=== PATIENT | female | born 1985 | race Caucasian/White ===

== ENCOUNTER → 2017-07-05 | Outpatient (CLI) | payer OTHER | LOC: HPND 09:10 | PROVIDERS: ATTEND Obstetrics & Gynecology | DX: O24.410 Gestational diabetes mellitus in pregnancy, diet controlled (principal); O34.212 Maternal care for vertical scar from previous cesarean delivery; O34.42 Maternal care for other abnormalities of cervix, second trimester | CPT/HCPCS: 76816 ==

== ENCOUNTER → 2017-08-02 | Outpatient (CLI) | payer OTHER ==
[~2017-08-02] MED LIST: GLUC1TES75; PREN1CAP7 PO
== END ==
LOC: HPND 08:58
PROVIDERS: ATTEND Obstetrics & Gynecology
DX: O24.410 Gestational diabetes mellitus in pregnancy, diet controlled (principal); O34.43 Maternal care for other abnormalities of cervix, third trimester; O34.219 Maternal care for unspecified type scar from previous cesarean delivery
CPT/HCPCS: 76816

== ENCOUNTER → 2017-08-30 | Outpatient (CLI) | payer OTHER ==
[~2017-08-30] MED LIST changes: +LANCETS1 MI1
== END ==
LOC: HPND 09:20
PROVIDERS: ATTEND Obstetrics & Gynecology
DX: O34.212 Maternal care for vertical scar from previous cesarean delivery (principal); O24.410 Gestational diabetes mellitus in pregnancy, diet controlled
CPT/HCPCS: 76816

== ENCOUNTER 2017-10-05 08:44 | Inpatient (IN) | payer OTHER ==
[~2017-10-05] VITALS: Ht 162.6 cm; Wt 80.0 kg
[2017-10-05] VITALS (8 sets, daily range): BP systolic 119–135; BP diastolic 66–92; PULSE 7–117; RESP 18–22; TEMP 97.7–99.2; O2SAT 98–99
--- NOTE | 2017-10-05 08:23 | HHI.HP ---
History & Physical H&P Unit Number: [id number] Date of : 1985 Patient Status: Registered Clinic Attending Doctor: Shane Tavares MD HPI HPI Chief Complaint 39 wks Travel History International Travel<30 Days: No Contact w/Intl Traveler<30Days: No Known Affected Area: No History of Present Illness HPI Pt is a 32 yo . EDC 10-11-2017, based on first trimester ultrasound. LMP was 12-28-2016. is complicated by gestational diabetes, well controlled on diet. She is GBS positive. Pt had primary low transverse C section [id number] at [facility]. Indication was arrest of descent, suspected cephalo-pelvic disproportion. She was gestational diabetic and also had 'suspected developing chorio- amnionitis'. Pt states that she pushed for 2 hours without descent. Infant weighed 8lbs , with APGARs of 3 and 9. infant stayed in NICU for 5 days. Pt states that she was told she would have a subsequent 'difficult vaginal delivery ' . We discussed success rates of in selected patients of over 70%. We discussed pros and cons of versus repeat elective LTCS. pt now decides to plan for repeat LTCS. We discussed procedure and likely outcomes. Repeat LTCS is scheduled for 10-05-2017. Weeks Gestation: 39 Para: 1 : 3 History (Limited) History Past Medical History Medical History: Denies Significant Hx Obstetric History Obstetric History Previous C Section 2012 for suspected CPD/chorio-amnionitis. , complicated by gestational diabetes, gestational hypertension. Prior first trimester miscarriage. Previous LEEP, 2014, subsequent PAPs wnl. Past Surgical History Narrative Surgical previous C section Surgical History: No Previous Surgery Family History Family History: Negative Social History Alcohol Use: No Tobacco Use: No Substance Abuse: No Allergies-Medications Allergies-Medications (Allergen,Severity, Reaction): Coded Allergies: No Known Allergies (Unverified Adverse Reaction, Unknown, 09/14/17) Home Meds Active Scripts Lancets (Lancets) 1 Mis Mis, EA .ROUTE DIRECTED for Blood Sugar Management, # 1 2 Refills Prov:Neyda Stewart CNM 09/07/17 W/O Vit A W/ Fe Fumar (Citranatal Aylett) 27-1-260 Mg Cap, 1 CAP PO DAILY for Nutritional Supplement, #30 CAP 2 Refills Prov:Neyda Stewart CNM [facility] 07/27/17 True Metrix Glucose Test Strips (True Metrix Glucose Test Strips) 1 Silvana Silvana, 1 EA .ROUTE DIRECTED for Blood Sugar Management, #1 BOX 1 Refill Prov:Neyda Stewart CNM [facility] 07/27/17 Discontinued Scripts Amoxicillin (Amoxicillin) 500 Mg Tab, 500 MG PO TID for Infection for 10 Days, # 30 TAB 0 Refills Prov:Neyda Stewart CNM [facility] 09/09/17 ROS Review of Systems Except as stated in HPI: all other systems reviewed are Neg Physical Exam Physical Exam Narrative GENERAL: Well-nourished, well-developed patient. SKIN: Warm and dry. HEAD: Normocephalic and atraumatic. EYES: No scleral icterus. No injection or drainage. ENT: No nasal drainage noted. Mucous membranes pink. Airway patent. NECK: Supple, trachea midline. No JVD. CARDIOVASCULAR: Regular rate and rhythm without murmurs, gallops, or rubs. RESPIRATORY: Breath sounds equal bilaterally. No accessory muscle use. BREASTS: Bilateral exam showed no masses , no retractions, no nipple discharge. ABDOMEN/GI: Abdomen soft, non-tender, bowel sounds present, no rebound, no guarding Gravid to [-] weeks size Fundal Height: [-] GENITOURINARY: External Genitalia: intact and normal in appearance BUS glands: [-] Cervix: [-post] Dilatation: [0-] Effacement: [0-] Station: [-3] Presentation: [vtx-] Membranes: [intact ] Uterine Contractions: [0-] FHT's: Category: [-1] Baseline: [133-] Reactive: [R-] Variability: [mod-] Decels: [none-] EXTREMITIES: No cyanosis or edema. BACK: Nontender without obvious deformity. No CVA tenderness. NEUROLOGICAL: Awake and alert. Motor and sensory grossly within normal limits. Five out of 5 muscle strength in all muscle groups. Normal speech. Data Data Data Vital Signs Reviewed: Yes Group B Strep: Positive MDM MDM Medical Record Reviewed: Yes Plan 32yo here for RCS This complicated by positive GBS and gestational diabetes. Previous C section report reviewed. patient opts for REPEAT LTCS. 10-05-2017. procedure reviewed and pre-operative instructions given Disposition: ADMIT for RCS Condition: Good Oct.05 Javy Edge II, MD Oct 05, 2017 08:23
[2017-10-05] MEDS ORDERED: LACTATED RINGER'S 1000 ML INJ 1,000 ML IV ONE ×2 (09:04→12:00)
[2017-10-05] MEDS ORDERED: LACTATED RINGER'S 1000 ML INJ 1,000 ML IV SCH ×2 (09:34→19:42)
[2017-10-05 10:08] LABS: AUTOMATED NEUTROPHIL # 5.3 TH/MM3 (1.8-7.7); BASOPHIL % 0.4 % (0.0-2.0); EOSINOPHIL # 0.1 TH/MM3 (0-0.4); EOSINOPHIL % 1.5 % (0.0-4.0); HEMATOCRIT 36.2 % (35.0-46.0); HEMOGLOBIN 12.7 GM/DL (11.6-15.3); LYMPH % 26.1 % (9.0-44.0); LYMPHOCYTE # 2.1 TH/MM3 (1.0-4.8); MEAN CELL VOLUME 87.6 FL (80.0-100.0); MEAN CORPUSCULAR HEMOGLOBIN 30.7 PG (27.0-34.0); MEAN CORPUSCULAR HGB CONC 35.1 % (32.0-36.0); MEAN PLATELET VOLUME 9.1 FL (7.0-11.0); MONO % 6.8 % (0.0-8.0); MONOCYTE # 0.6 TH/MM3 (0-0.9); NEUT % 65.2 % (16.0-70.0); PLATELET COUNT 175 TH/MM3 (150-450); RED BLOOD COUNT 4.14 MIL/MM3 (4.00-5.30); RED CELL DISTRIBUTION WIDTH 14.9 % (11.6-17.2); WHITE BLOOD COUNT 8.2 TH/MM3 (4.0-11.0)
[2017-10-05 10:15] LABS: BACTERIA, URINE OCC /hpf; BILIRUBIN, URINE NEG (NEG); BLOOD, URINE NEG (NEG); GLUCOSE,URINE NEG (NEG); KETONE, URINE 10 mg/dL (NEG); MUCUS URINE FEW /lpf (OCC); NITRITE,URINE NEG (NEG); SQUAMOUS EPITHELIAL CELL URINE 37 /hpf (0-5); TRANSITIONAL EPI CELLS, URINE <1 /hpf; URINE COLOR YELLOW (YELLW/STRAW); URINE LEUKOCYTE ESTERASE TRACE (NEG)
[2017-10-05] MEDS ORDERED: ceFAZolin 2 GM PREMIX 50 ML IV SCH (10:15)
[2017-10-05] MEDS ORDERED: ACETAMINOPHEN 1000 MG/100 ML 100 ML IV ONE (10:24)
[2017-10-05] MEDS ORDERED: MORPHINE SULFATE PF 5 MG/10 ML VIAL ONE (10:24)
[2017-10-05] MEDS ORDERED: CITRIC ACID-SODIUM CITRATE LIQ 30 ML UDC PO SCH (10:45)
[2017-10-05] MEDS ORDERED: KETOROLAC TROMETHAMINE 30 MG/ML (IVP) VIAL IV PUSH ONE (12:00)
[2017-10-05] MEDS ORDERED: ONDANSETRON HCL 4 MG/2 ML VIAL IV ONE (12:00)
[2017-10-05] MEDS ORDERED: DEXAMETHASONE SOD PHOS 4 MG/ML VIAL IV ONE (12:00)
[2017-10-05] MEDS ORDERED: PHENYLEPH/NS 1000 MCG/10 ML SYR IV ONE (12:00)
[2017-10-05] MEDS ORDERED: ESMOLOL HCL 100 MG/10 ML VIAL IV ONE (12:00)
[2017-10-05] MEDS ORDERED: OXYTOCIN 10 UNIT/ML AMP IV ONE (12:00)
[2017-10-05] MEDS ORDERED: EPIDURAL-NO SYSTEMIC NARCOTICS PRN (13:35)
[2017-10-05] MEDS ORDERED: EPIDURAL-DIPHENHYDRAMINE HCL 50 MG CAP PO PRN (13:35)
[2017-10-05] MEDS ORDERED: EPIDURAL-DO NOT ADMINISTER ANTICOAGULANTS PRN (13:35)
[2017-10-05] MEDS ORDERED: EPIDURAL-DIPHENHYDRAMINE HCL 50 MG/ML VIAL IV PUSH PRN (13:35)
[2017-10-05] MEDS ORDERED: EPIDURAL-NALOXONE HCL 0.4 MG/ML AMP IV PUSH PRN (13:35)
[2017-10-05] MEDS ORDERED: ONDANSETRON HCL 4 MG/2 ML VIAL IV PUSH PRN (14:45)
[2017-10-05] MEDS ORDERED: SODIUM CHLORIDE 0.9% FLUSH 10 ML FLUSH IV FLUSH PRN (14:45)
[2017-10-05] MEDS ORDERED: OXYTOCIN 30 UNITS-500ML PREMIX 500 ML IV ONE (14:45)
[2017-10-05] MEDS ORDERED: ACETAMINOPHEN 325 MG TAB PO PRN (14:45)
[2017-10-05] MEDS ORDERED: ZOLPIDEM TARTRATE 5 MG TAB PO PRN (14:45)
[2017-10-05] MEDS ORDERED: SIMETHICONE 80 MG CHEWABLE TAB PO PRN (14:45)
--- NOTE | 2017-10-05 14:57 | PD.OP ---
Operative Report Date of Surgery: Oct 05, 2017 Preoperative Diagnosis: (1) 39 weeks gestation of (2) Previous section Postoperative Diagnosis: (1) 39 weeks gestation of (2) Previous section Procedure: Repeat Low Transverse Section Anesthesia: Spinal Surgeon: Ashleigh Milligan Primary Education Professor(s): Christa Connors Resident Surgeon: Gricel Brooke Operation and Findings: PREOPERATIVE DIAGNOSIS 1. 39 weeks gestation 2. Repeat Section. POSTOPERATIVE DIAGNOSIS 1. 39 weeks gestation. 2. Repeat Section. PROCEDURE Primary low transverse section. SURGEON Dr. Ashleigh Milligan and Dr. Gricel Brooke R3. FINDINGS A normal viable female infant weight 3370g and Apgars 8/9. Right fallopian tube adhesed to anterior uterus. COMPLICATIONS None COUNTS Correct ESTIMATED BLOOD LOSS 500 cc FLUIDS Crystalloids CONDITION The patient tolerated the procedure well and went to the PACU for recovery in good condition. PROCEDURE IN DETAIL The patient was taken to the operating room, identified by name band and verbally. The time out was done and patient was prepped and draped in the usual sterile fashion for section. A Pfannenstiel incision was made then carried down to the fascia. The fascia was taken off the rectus muscle by blunt and sharp dissection. The rectus muscles were spread bluntly and the peritoneum entered under direct vision without difficulty. The incision was extended and adhesions were taken down. The right fallopian tube was noted to be adhered to the anterior uterus and was dissected off of the uterus. The uterus was incised transversely along the lower uterine segment. Once the uterine cavity was entered, clear fluid was noted. The head was grasped and fundal pressure was applied. A kiwi vacuum was used to assist with delivery of the head. Nuchal cord x 1 was reduced and the rest of the body was delivered without difficulty. Cord clamping was delayed for 45 seconds before the cord was doubly clamped and cut and the baby was handed to the baby nurse. The cord blood was obtained and the placenta was delivered manually. The uterus was curettaged with a wet lap. The uterine incision was repaired with #1 chromic in a running locking fashion in two layers with the second layer imbricating the first to achieve hemostasis. The uterus was returned to the abdominal cavity and Dia was applied to assist with hemostasis of the right fimbria. Intercede was placed to prevent future adhesion of the right fallopian tube. Once this had been accomplished, all incisions were carefully inspected. The gutters were cleaned of blood and debris. The fascia was repaired with #1 PDS in a running fashion bilaterally. The subcuticular layer was repaired with plain gut. The skin was then repaired with a 3-0 Monocryl in a subcuticular fashion. The wound was steriley dressed with a Primapore dressing. The patient tolerated the procedure well and went to PACU for recovery in good condition. Gricel Brooke MD, R3 Oct 05, 2017 14:57
[2017-10-05] MEDS: IBUPROFEN 600 MG TAB PO PRN (23:42)
[2017-10-05] MEDS: oxyCODONE/ACETAMINOPHEN 5 MG/325 MG TAB PO PRN (23:42)
[2017-10-06] MEDS ORDERED: OXYTOCIN 30 UNITS-500ML PREMIX 500 ML IV PRN (00:45)
[2017-10-06 01:00] VITALS: BP 124/76; PULSE 91; RESP 16; TEMP 98.9
[2017-10-06 04:30] VITALS: BP 212/87; PULSE 101; RESP 18; TEMP 98.4
[2017-10-06] MEDS: oxyCODONE/ACETAMINOPHEN 5 MG/325 MG TAB PO PRN ×5 (05:03→22:07)
[2017-10-06] MEDS: IBUPROFEN 600 MG TAB PO PRN ×3 (05:03→18:00)
[2017-10-06 06:11] LABS: AUTOMATED NEUTROPHIL # 8.7 TH/MM3 (1.8-7.7); BASOPHIL % 0.3 % (0.0-2.0); EOSINOPHIL # 0.1 TH/MM3 (0-0.4); EOSINOPHIL % 0.5 % (0.0-4.0); HEMATOCRIT 36.3 % (35.0-46.0); HEMOGLOBIN 12.5 GM/DL (11.6-15.3); LYMPH % 20.6 % (9.0-44.0); LYMPHOCYTE # 2.5 TH/MM3 (1.0-4.8); MEAN CELL VOLUME 87.8 FL (80.0-100.0); MEAN CORPUSCULAR HEMOGLOBIN 30.3 PG (27.0-34.0); MEAN CORPUSCULAR HGB CONC 34.5 % (32.0-36.0); MEAN PLATELET VOLUME 9.2 FL (7.0-11.0); MONO % 6.8 % (0.0-8.0); MONOCYTE # 0.8 TH/MM3 (0-0.9); NEUT % 71.8 % (16.0-70.0); PLATELET COUNT 192 TH/MM3 (150-450); RED BLOOD COUNT 4.13 MIL/MM3 (4.00-5.30); RED CELL DISTRIBUTION WIDTH 14.8 % (11.6-17.2); WHITE BLOOD COUNT 12.1 TH/MM3 (4.0-11.0)
[2017-10-06 08:00] VITALS: BP 113/79; PULSE 78; RESP 16; TEMP 98.2
--- NOTE | 2017-10-06 09:04 | HHI.OB ---
Subjective Post Operative Day: 1 Remarks Ms. Hartmann is a 32 yo [id number] who is POD 1 from repeat CS 10/05. Afebrile with stable vital signs overnight. *Regarding documented SBP 212, confirmed with nursing staff that this is an EMR entry order; patient has been normotensive * Patient has been afebrile with stable vital signs overnight. Patient reports that she is doing well at this time; she reports some abdominal pain but that it is controlled with Motrin and Percocet. Patient has had light vaginal bleeding. Patient has been ambulating well. No dysuria. Patient passing gas. No chest pain, shortness of breath, or leg swelling. Patient breast feeding; she reports this is going well. Objective Vitals/I&O Vital Signs Date Time Temp Pulse Resp B/P (MAP) Pulse Ox O2 Delivery O2 Flow Rate FiO2 10/06/17 04:30 212/87 (128) 10/06/17 04:30 98.4 101 18 10/06/17 01:00 98.9 91 16 124/76 (92) 10/05/17 21:15 99.2 10/05/17 21:15 100 20 120/71 (87) 10/05/17 17:18 78 10/05/17 17:18 7 18 135/92 (106) 10/05/17 15:45 74 20 133/72 (92) 99 10/05/17 15:30 75 20 124/67 (86) 98 10/05/17 15:15 79 22 99 10/05/17 15:15 126/77 (93) 10/05/17 15:00 97.7 88 20 119/66 (83) 99 10/05/17 10:00 97.9 20 10/05/17 09:30 117 122/89 (100) Result Diagram: 10/06/17 0520 Objective Remarks GENERAL: Well-nourished, well-developed patient. CARDIOVASCULAR: Regular rate and rhythm without murmurs. Normal perfusion RESPIRATORY: CTAB; normal rate ABDOMEN/GI: Abdomen soft, non-tender, bowel sounds present. Incision: Clean, dry and intact. Fundus: Firm, non-tender at umbilicus. GENITOURINARY: Light to moderate bleeding. EXTREMITIES: No cyanosis or edema, non-tender, without signs of DVT. Medications and IVs Current Medications Medications (Trade) Dose Ordered Sig/Jamir Route Start Time Stop Time Status Last Admin Lactated Ringer's 1,000 ml @ 100 mls/hr Q10H IV 10/05/17 19:42 10/06/17 15:41 10/05/17 23:45 Oxytocin 500 ml @ 100 mls/hr UNSCH X1 PRN IV 10/06/17 00:45 10/07/17 00:44 (NS Flush) 2 ml BID IV FLUSH 10/05/17 21:00 (NS Flush) 2 ml UNSCH PRN IV FLUSH 10/05/17 14:45 (Mylicon Chew) 80 mg QID PRN PO 10/05/17 14:45 (Tylenol) 650 mg Q6H PRN PO 10/05/17 14:45 (Motrin) 600 mg Q6H PRN PO 10/05/17 14:45 10/06/17 05:03 (Percocet 5-325 Mg) 1 tab Q4H PRN PO 10/05/17 14:45 10/06/17 05:03 (Percocet 5-325 Mg) 2 tab Q4H PRN PO 10/05/17 14:45 (Asha-Colace) 2 tab Q12H PRN PO 10/05/17 14:45 (Ambien) 5 mg HS PRN PO 10/05/17 14:45 (M-M-R Ii Inj) 0.5 ml ONCE ONCE SQ 10/06/17 16:00 10/06/17 16:01 (Boostrix Inj) 0.5 ml ONCE ONCE IM 10/06/17 16:00 10/06/17 16:01 (Zofran Inj) 4 mg Q6H PRN IV PUSH 10/05/17 14:45 Miscellaneous Information NO SYSTEMIC NARCOTICS TO BE GIVEN FO... UNSCH PRN .XX 10/05/17 13:35 10/06/17 13:34 (Narcan Inj) 0.4 mg UNSCH PRN IV PUSH 10/05/17 13:35 10/06/17 13:34 (Benadryl Inj) 25 mg Q6H PRN IV PUSH 10/05/17 13:35 10/06/17 13:34 (Benadryl) 50 mg Q6H PRN PO 10/05/17 13:35 10/06/17 13:34 Miscellaneous Information ALL NURSING DEPARTMENTS UNSCH PRN .XX 10/05/17 13:35 10/06/17 13:34 Assessment/Plan Problem List: (1) care following delivery ICD Codes: Z39.2 - Encounter for routine follow-up Status: Acute Assessment and Plan Ms. Hartmann is a 32 yo [id number] who is POD 1 from repeat CS 10/05. -Continue post- care -Continue to monitor VS, vaginal bleeding -Encourage ambulation -Percocet/Motrin for pain control -Asha-colace for stool softening Paul Mclain MD, R3 Oct 06, 2017 09:04
[2017-10-06] MEDS: DOCUSATE SODIUM 50 MG/SENNA 8.6 MG TAB PO PRN ×2 (09:17→22:08)
[2017-10-06 12:00] VITALS: BP 116/78; PULSE 89; RESP 16; TEMP 97.9
[2017-10-06] MEDS ORDERED: DIPHTH/TETANUS/ACEL PERTUSSIS (BOOSTER) 0.5 ML VIAL/PFS IM ONE (16:00)
[2017-10-06] MEDS ORDERED: MEASLES, MUMPS, RUBELLA VACCINE 0.5 ML VIAL SQ ONE (16:00)
[2017-10-06] MEDS: SODIUM CHLORIDE 0.9% FLUSH 10 ML FLUSH IV FLUSH SCH (19:23)
[2017-10-06 20:00] VITALS: BP 117/83; PULSE 95; RESP 18; TEMP 97.8; O2SAT 98
[2017-10-06 23:50] VITALS: BP 149/93; PULSE 96; RESP 20; TEMP 98.3; O2SAT 96
[2017-10-07] MEDS: oxyCODONE/ACETAMINOPHEN 5 MG/325 MG TAB PO PRN ×6 (01:43→22:28)
[2017-10-07] MEDS: IBUPROFEN 600 MG TAB PO PRN ×4 (01:43→22:25)
[2017-10-07 04:00] VITALS: BP 151/90; PULSE 84; RESP 18; TEMP 98.2; O2SAT 96
--- NOTE | 2017-10-07 07:45 | HHI.OB ---
Subjective Post Operative Day: 2 Remarks Ms. Hartmann is a 32 yo [id number] who is POD 2 from repeat CS 10/05. Afebrile with HTN overnight (BP's of 149/93, 151/90). Patient attributes her BP elevation to ambulating/activity. Patient reports that she is doing well at this time; she reports some abdominal pain but that it is controlled. Patient has had light vaginal bleeding. Patient has been ambulating well. No dysuria. Patient passing gas; she has not yet had a bowel movement. No chest pain, shortness of breath, or leg swelling. Patient does not report any problems with . Objective Vitals/I&O Vital Signs Date Time Temp Pulse Resp B/P (MAP) Pulse Ox O2 Delivery O2 Flow Rate FiO2 10/07/17 04:00 98.2 84 18 151/90 (110) 96 10/06/17 23:50 98.3 96 20 149/93 (111) 96 10/06/17 20:00 117/83 (94) 10/06/17 20:00 97.8 95 18 98 10/06/17 12:00 97.9 89 16 116/78 (91) 10/06/17 08:00 98.2 78 16 113/79 (90) Result Diagram: 10/06/17 0520 Objective Remarks GENERAL: Well-nourished, well-developed patient. CARDIOVASCULAR: Regular rate and rhythm without murmurs. Normal perfusion RESPIRATORY: CTAB; normal rate ABDOMEN/GI: Abdomen soft, non-tender, bowel sounds present. Incision: Clean, dry and intact. Fundus: Firm, non-tender at umbilicus. GENITOURINARY: Light to moderate bleeding. EXTREMITIES: No cyanosis or edema, non-tender, without signs of DVT. Medications and IVs Current Medications Medications (Trade) Dose Ordered Sig/Jamir Route Start Time Stop Time Status Last Admin (NS Flush) 2 ml BID IV FLUSH 10/05/17 21:00 (NS Flush) 2 ml UNSCH PRN IV FLUSH 10/05/17 14:45 (Mylicon Chew) 80 mg QID PRN PO 10/05/17 14:45 (Tylenol) 650 mg Q6H PRN PO 10/05/17 14:45 (Motrin) 600 mg Q6H PRN PO 10/05/17 14:45 10/07/17 01:43 (Percocet 5-325 Mg) 1 tab Q4H PRN PO 10/05/17 14:45 10/06/17 05:03 (Percocet 5-325 Mg) 2 tab Q4H PRN PO 10/05/17 14:45 10/07/17 06:06 (Asha-Colace) 2 tab Q12H PRN PO 10/05/17 14:45 10/06/17 22:08 (Ambien) 5 mg HS PRN PO 10/05/17 14:45 (Zofran Inj) 4 mg Q6H PRN IV PUSH 10/05/17 14:45 Assessment/Plan Problem List: (1) care following delivery ICD Codes: Z39.2 - Encounter for routine follow-up Status: Acute Assessment and Plan Ms. Hartmann is a 32 yo [id number] who is POD 1 from repeat CS 10/05. -Continue post- care -Continue to monitor VS, vaginal bleeding -Encourage ambulation -Percocet/Motrin for pain control -Asha-colace for stool softening BP elevation Impression: multiple SBP's ~150/90. History of gestational HTN with prior per EMR -Will continue to monitor BP overnight Paul Mclain MD, R3 Oct 07, 2017 07:45
[2017-10-07 08:00] VITALS: BP 131/80; PULSE 88; RESP 18; TEMP 97.9
[2017-10-07] MEDS: SODIUM CHLORIDE 0.9% FLUSH 10 ML FLUSH IV FLUSH SCH (09:00)
[2017-10-07 14:00] VITALS: BP 121/88; PULSE 102; RESP 16; TEMP 98.2
[2017-10-07 17:00] VITALS: BP 134/86; PULSE 86; RESP 16; TEMP 97.9
[2017-10-07 20:00] VITALS: BP 118/79; PULSE 96; RESP 18; TEMP 98.2
[2017-10-08] VITALS: BP 119/81; PULSE 89; RESP 18; TEMP 98
[2017-10-08] MEDS: oxyCODONE/ACETAMINOPHEN 5 MG/325 MG TAB PO PRN ×3 (02:38→10:40)
[2017-10-08 04:00] VITALS: BP 132/86; PULSE 103; RESP 20; TEMP 98.6
[2017-10-08] MEDS: IBUPROFEN 600 MG TAB PO PRN (06:29)
[2017-10-08 08:00] VITALS: BP 116/75; PULSE 87; RESP 16; TEMP 97.6; O2SAT 97
--- NOTE | 2017-10-08 09:57 | HHI.OB ---
Subjective Post Operative Day: 3 Remarks Ms. Hartmann is a 32 yo [id number] who is POD 3 from repeat CS 10/05. Afebrile with stable vital signs overnight. Patient reports that she is doing well at this time; no significant abdominal pain. Mild vaginal bleeding. Patient ambulating well. No dysuria. Patient passing gas; she has not yet had a bowel movement. No chest pain, shortness of breath, or leg swelling. Patient has been well. Patient plans to have follow-up appointment with [facility] in 1 week. Objective Vitals/I&O Vital Signs Date Time Temp Pulse Resp B/P (MAP) Pulse Ox O2 Delivery O2 Flow Rate FiO2 10/08/17 08:00 116/75 (89) 10/08/17 08:00 87 16 97 10/08/17 08:00 97.6 10/08/17 04:00 98.6 103 20 132/86 (101) 10/08/17 00:00 98.0 89 18 119/81 (94) 10/07/17 20:00 96 118/79 (92) 10/07/17 20:00 98.2 18 10/07/17 17:00 97.9 86 16 134/86 (102) 10/07/17 14:00 98.2 102 16 121/88 (99) Result Diagram: 10/06/17 0520 Objective Remarks GENERAL: Well-nourished, well-developed patient. CARDIOVASCULAR: Regular rate and rhythm without murmurs. Normal perfusion RESPIRATORY: CTAB; normal rate ABDOMEN/GI: Abdomen soft, non-tender, bowel sounds present. Incision: Clean, dry and intact. Fundus: Firm, non-tender at umbilicus. GENITOURINARY: Light to moderate bleeding. EXTREMITIES: No cyanosis or edema, non-tender, without signs of DVT. Medications and IVs Current Medications Medications (Trade) Dose Ordered Sig/Jamir Route Start Time Stop Time Status Last Admin (NS Flush) 2 ml BID IV FLUSH 10/05/17 21:00 (NS Flush) 2 ml UNSCH PRN IV FLUSH 10/05/17 14:45 (Mylicon Chew) 80 mg QID PRN PO 10/05/17 14:45 (Tylenol) 650 mg Q6H PRN PO 10/05/17 14:45 (Motrin) 600 mg Q6H PRN PO 10/05/17 14:45 10/08/17 06:29 (Percocet 5-325 Mg) 1 tab Q4H PRN PO 10/05/17 14:45 10/06/17 05:03 (Percocet 5-325 Mg) 2 tab Q4H PRN PO 10/05/17 14:45 10/08/17 06:29 (Asha-Colace) 2 tab Q12H PRN PO 10/05/17 14:45 10/06/17 22:08 (Ambien) 5 mg HS PRN PO 10/05/17 14:45 (Zofran Inj) 4 mg Q6H PRN IV PUSH 10/05/17 14:45 Assessment/Plan Problem List: (1) care following delivery ICD Codes: Z39.2 - Encounter for routine follow-up Status: Acute Assessment and Plan Ms. Hartmann is a 32 yo [id number] who is POD 3 from repeat CS 10/05. -Continue post- care -Hgb 12.7-> 12.5 post-operatively -Normal VS -Mild vaginal bleeding -Ambulating well -Continue Percocet/Motrin for pain control -Continue Asha-colace for stool softening -Follow-up appointment in 1 week for incision check Paul Mclain MD, R3 Oct 08, 2017 09:57
[2017-10-08] MEDS ORDERED: IBUP-232 PO (09:59)
[2017-10-08] MEDS ORDERED: OXYC1TAB63 PO (09:59)
[2017-10-08] MEDS ORDERED: PERI PO (09:59)
--- NOTE | 2017-10-08 09:59 | HHI.DCPOC ---
Discharge Care Plan Diagnosis: (1) care following delivery Report Symptoms to Your Doctor -Temperature above 100.5 degrees -Redness, of incision or excessive or foul smelling drainage -Unusual pain or calf pain -Increased vaginal bleeding -Painful or difficulty urinating -Feelings of extreme sadness or anxiety after 2 weeks Goals to Promote Your Health * To prevent worsening of your condition and complications * To maintain your health at the optimal level Directions to Meet Your Goals Take your medications as prescribed Follow your dietary instruction Follow activity as directed Ensure plenty of rest for recovery Drink fluids for hydration Keep your appointments as scheduled Take your immunizations and boosters as scheduled If your symptoms worsen call your PCP, if no PCP go to Urgent Care Center or Emergency Room Smoking is Dangerous to Your Health. Avoid second hand smoke Call the 24-hour crisis hotline for domestic abuse at Paul Mclain MD, R3 Oct 08, 2017 09:59
[2017-10-08] MEDS: DOCUSATE SODIUM 50 MG/SENNA 8.6 MG TAB PO PRN (10:40)
== END 2017-10-08 12:23 | disposition home or self-care (01) | DRG 766 ==
LOC: H2EB 08:44 → H1EA 16:09
PROVIDERS: ADMIT Obstetrics & Gynecology Obstetrics; ATTEND Obstetrics & Gynecology Obstetrics
PROC: 10D00Z1 Extraction of Products of Conception, Low, Open Approach (ICD-10-PCS; principal; 2017-10-05)
PROC: 0UN50ZZ Release Right Fallopian Tube, Open Approach (ICD-10-PCS; 2017-10-05)
DX: O34.211 Maternal care for low transverse scar from previous cesarean delivery (principal); O24.420 Gestational diabetes mellitus in childbirth, diet controlled; N73.6 Female pelvic peritoneal adhesions (postinfective); O99.824 Streptococcus B carrier state complicating childbirth; O16.5 Unspecified maternal hypertension, complicating the puerperium; Z37.0 Single live birth; Z3A.39 39 weeks gestation of pregnancy
CPT/HCPCS: 59025; 80307; 81001; 85025; 86850; 86900; 86901; 90715; C1765; J0131; J0690; J1100; J1885; J2274; J2370; J2405; J2590; J7120